=== PATIENT | male | born 1950 | race American Indian/Alaskan Native ===

== ENCOUNTER 2018-12-01 15:10 | Emergency (ER) | payer MEDICARE, OTHER ==
[2018-12-01 15:16] VITALS: BP 165/87; PULSE 81; RESP 18; TEMP 98.1; O2SAT 97; BMI 29.5
--- NOTE | 2018-12-01 16:28 | ED PDOC ---
Arrival/HPI - General Chief Complaint: ENT Problem Time Seen by Provider: 12/01/18 15:48 Historian: Patient - History of Present Illness Narrative History of Present Illness (Text): 12/01/18 15:48 Kahlil Valero is a 68 year old male, with a past medical history of CAD S/P CABG 36 years ago, multiple stents in the past several years, diabetes, hypertension, and nosebleeds who presents to the emergency department complaining of nosebleed since 1 hour. Patient appreciates majority of bleeding right in nostril. 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 Patient notes dry and warm air in the office. Patient states current nosebleed is worse than previous. Patient currently takes clopidogrel and aspirin 81mg. Patient denies chest pain, shortness of breath, abdominal pain, nausea, vomiting, diarrhea, or any other complaint. Time/Duration: 1 hour Symptom Course: Unchanged Activities at Onset: Light Context: Sitting, Other Past Medical History - Provider Review Nursing Documentation Reviewed: Yes - Infectious Disease Hx of Infectious Diseases: None - Cardiac Hx VT: Yes Hx Hypertension: Yes - Neurological Hx Seizures: No - Endocrine/Metabolic Hx Diabetes Mellitus Type 2: Yes - Musculoskeletal/Rheumatological Hx Falls: No - Psychiatric Hx Substance Use: No - Surgical History Hx Coronary Artery Bypass Graft: Yes Other/Comment: Knee Sx - Anesthesia Hx Anesthesia: Yes - Suicidal Assessment Feels Threatened In Home Enviroment: No Family/Social History - Physician Review Nursing Documentation Reviewed: Yes Family/Social History: No Known Family HX Smoking Status: Never Smoked Hx Alcohol Use: No Hx Substance Use: No Allergies/Home Meds Allergies/Adverse Reactions: Allergies No Known Allergies Allergy (Verified 12/01/18 15:23) Home Medications: Home Meds Medication Instructions Recorded Confirmed Aspirin [Ecotrin] 81 mg PO DAILY 09/22/16 12/01/18 Clopidogrel [Plavix] 75 mg PO DAILY 09/22/16 12/01/18 Diltiazem HCl [Cardizem LA] 180 mg PO QPM 09/22/16 12/01/18 Enalapril Maleate [Vasotec] 20 mg PO BID 09/22/16 12/01/18 Metoprolol Succinate XL [Toprol XL] 50 mg PO BID 09/22/16 12/01/18 Rosuvastatin Calcium [Crestor] 10 mg PO QPM 09/22/16 12/01/18 metFORMIN [glucOPHAGE] 500 mg PO BID 09/22/16 12/01/18 Review of Systems - Physician Review All systems were reviewed & negative as marked: Yes - Review of Systems ENT: Epistaxis Respiratory: absent: SOB Cardiovascular: absent: Chest Pain Physical Exam - Physical Exam Narrative Physical Exam (Text): 12/01/18 15:48 Constitutional: No acute distress. Head: Normocephalic. Atraumatic. Eyes: PERRL. ENT: active bleeding in right nostril Neck: Supple. Cardiovascular: Regular rate. Chest: No tenderness. Respiratory: Clear to auscultation bilaterally. GI: Soft. Nontender. Nondistended. Back: No CVA tenderness. Musculoskeletal: No tenderness or swelling of extremities. Skin: No rash. Neurologic: Alert, no focal deficit. Vital Signs Reviewed: Yes Vital Signs Temp Pulse Resp BP Pulse Ox 12/01/18 15:13 98.1 F 81 18 165/87 H 97 Temperature: Afebrile Blood Pressure: Hypertensive Pulse: Regular Respiratory Rate: Normal Appearance: Positive for: Well-Appearing, Non-Toxic, Comfortable Pain Distress: None Mental Status: Positive for: Alert and Oriented X 3 Medical Decision Making ED Course and Treatment: 12/01/18 15:48 Impression: Patient is a 68 year old male with a past medical history of CABG, multiple stents, diabetes, hypertension, and nosebleeds who presents to the emergency department for nosebleed since one hour ago. Pt Progress Notes: 12/01/18 16:10 Bleeding relieved w/ pressure. Observe patient to follow up for any other bleeding. Bleeding continued. Rhinorocket placed. 12/01/18 16:47 PROCEDURE: EPISTAXIS MANAGEMENT Performed by the Chano Kebede Consent: Informed consent was obtained after discussion of the risks, benefits, and alternatives to the procedure. Timeout: A timeout to verify the correct patient, procedure, and site was performed immediately prior to the procedure. Indication: Nasal bleeding control Location: right naris Bleeding Source: ANTERIOR Cautery: Packing: Rapid Rhino 4.5 cm, .75cc Post-procedure: Good hemostasis. The patient was observed following procedure and no repeat episode of bleeding was noted. Patient tolerated the procedure well with no immediate complications. - Scribe Statement The provider has reviewed the documentation as recorded by the Scribe Rodnye Barlow All medical record entries made by the Scribe were at my direction and p ersonally dictated by me. I have reviewed the chart and agree that the record accurately reflects my personal performance of the history, physical exam, medical decision making, and the department course for this patient. I have also personally directed, reviewed, and agree with the discharge instructions and disposition. Disposition/Present on Arrival - Present on Arrival Any Indicators Present on Arrival: No History of DVT/PE: No History of Uncontrolled Diabetes: No Urinary Catheter: No History of Decub. Ulcer: No History Surgical Site Infection Following: CABG - Mediastinitis, None - Disposition Have Diagnosis and Disposition been Completed?: Yes Diagnosis: Epistaxis Disposition: HOME/ ROUTINE Disposition Time: 16:44 Patient Plan: Discharge Condition: GOOD Discharge Instructions (ExitCare): Nosebleeds Prescriptions: Acetaminophen [Tylenol 325mg tab] 2 tab PO Q4H #30 tab Referrals: Misha Walker DO [Staff Provider] - Follow up with primary Forms: [employer] ([place])
== END 2018-12-01 16:47 | disposition home or self-care (01) ==
LOC: ED 15:10
DX: R04.0 Epistaxis (principal)

== ENCOUNTER 2018-12-16 20:48 | Emergency (ER) | payer MEDICARE, OTHER ==
[2018-12-16 20:48] VITALS: BMI 29.5
[2018-12-16 21:32] VITALS: BP 131/69; PULSE 72; RESP 18; O2SAT 97
[2018-12-16 21:33] VITALS: TEMP 97.7
--- NOTE | 2018-12-16 21:55 | ED PDOC ---
Arrival/HPI - General Chief Complaint: ENT Problem Historian: Patient - History of Present Illness Narrative History of Present Illness (Text): 12/16/18 21:51 68 y/o male, pmh including htn/hld/dm, nkda, c/o nose bleed about half hour ago and resolved. Pt. stated that he would like to be discharged home, scheduled to see the ENT, refused any nasal packing or cauterizing in the ER. Pt. has no fall or trauma, no other medical or psychological complaints. Past Medical History - Provider Review Nursing Documentation Reviewed: Yes - Infectious Disease Hx of Infectious Diseases: None - Cardiac Hx MO: Yes Hx Hypertension: Yes - Neurological Hx Seizures: No - Endocrine/Metabolic Hx Diabetes Mellitus Type 2: Yes - Musculoskeletal/Rheumatological Hx Falls: No - Psychiatric Hx Substance Use: No - Surgical History Hx Coronary Artery Bypass Graft: Yes Other/Comment: Knee Sx - Anesthesia Hx Anesthesia: Yes - Suicidal Assessment Feels Threatened In Home Enviroment: No Family/Social History - Physician Review Nursing Documentation Reviewed: Yes Family/Social History: Unknown Family HX Smoking Status: Never Smoked Hx Alcohol Use: Yes Frequency of alcohol use: Socially Hx Substance Use: No Allergies/Home Meds Allergies/Adverse Reactions: Allergies No Known Allergies Allergy (Verified 12/16/18 21:32) Home Medications: Home Meds Medication Instructions Recorded Confirmed Aspirin [Ecotrin] 81 mg PO DAILY 09/22/16 12/01/18 Clopidogrel [Plavix] 75 mg PO DAILY 09/22/16 12/01/18 Diltiazem HCl [Cardizem LA] 180 mg PO QPM 09/22/16 12/01/18 Enalapril Maleate [Vasotec] 20 mg PO BID 09/22/16 12/01/18 Metoprolol Succinate XL [Toprol XL] 50 mg PO BID 09/22/16 12/01/18 Rosuvastatin Calcium [Crestor] 10 mg PO QPM 09/22/16 12/01/18 metFORMIN [glucOPHAGE] 500 mg PO BID 09/22/16 12/01/18 Review of Systems - Review of Systems Constitutional: absent: Fatigue, Fevers Eyes: absent: Vision Changes ENT: absent: Hearing Changes Respiratory: absent: SOB, Cough Cardiovascular: absent: Chest Pain Gastrointestinal: absent: Abdominal Pain, Nausea, Vomiting Musculoskeletal: absent: Arthralgias, Back Pain Skin: absent: Rash, Pruritis Neurological: absent: Headache, Dizziness Psychiatric: absent: Anxiety, Depression, Suicidal Ideation Physical Exam Vital Signs Reviewed: Yes Vital Signs Temp Pulse Resp BP Pulse Ox 12/16/18 21:25 97.7 F 72 18 131/69 97 Temperature: Afebrile Blood Pressure: Normal Pulse: Regular Respiratory Rate: Normal Appearance: Positive for: Well-Appearing, Non-Toxic, Comfortable Pain Distress: None Mental Status: Positive for: Alert and Oriented X 3 - Systems Exam Head: Present: Atraumatic, Normocephalic Pupils: Present: PERRL Extroacular Muscles: Present: EOMI Conjunctiva: Present: Normal Mouth: Present: Moist Mucous Membranes Nose (External): Present: Atraumatic. No: Abrasion, Contusion, Laceration, Lesions Nose (Internal): Present: Normal Inspection, No Active Bleeding. No: Rhinorrhea, Septal Deviation, Septal Hematoma, Epistaxis Neck: Present: Normal Range of Motion Respiratory/Chest: Present: Clear to Auscultation, Good Air Exchange. No: Respiratory Distress, Accessory Muscle Use Cardiovascular: Present: Regular Rate and Rhythm, Normal S1, S2. No: Murmurs Abdomen: No: Tenderness, Distention, Peritoneal Signs Back: Present: Normal Inspection Upper Extremity: Present: Normal Inspection. No: Cyanosis, Edema Lower Extremity: Present: Normal Inspection. No: Edema Neurological: Present: GCS=15, CN II-XII Intact, Speech Normal Skin: Present: Warm, Dry, Normal Color. No: Rashes Psychiatric: Present: Alert, Oriented x 3, Normal Insight, Normal Concentration Medical Decision Making ED Course and Treatment: 12/16/18 21:56 -There is no active bleeding, pt. request to be discharged home, will discharge home. -Discharge home with education on follow up with your own pmd and ENT within 2 days, return to the ER for any new or worsening signs or symptoms. - PA / SKID STRAPPER / Resident Statement MD/DO has reviewed & agrees with the documentation as recorded. Disposition/Present on Arrival - Present on Arrival Any Indicators Present on Arrival: No History of DVT/PE: No History of Uncontrolled Diabetes: No Urinary Catheter: No History of Decub. Ulcer: No History Surgical Site Infection Following: None - Disposition Have Diagnosis and Disposition been Completed?: Yes Diagnosis: Epistaxis Disposition: HOME/ ROUTINE Disposition Time: 21:57 Patient Plan: Discharge Condition: IMPROVED Additional Instructions: Discharge home with education on follow up with your own pmd and ENT within 2 days, return to the ER for any new or worsening signs or symptoms. Referrals: Rocky Ortiz DO [Staff Provider] - Follow up with primary Forms: [employer] ([place])
== END 2018-12-16 22:10 | disposition home or self-care (01) ==
LOC: ED 20:48
DX: R04.0 Epistaxis (principal); E11.9 Type 2 diabetes mellitus without complications; I10 Essential (primary) hypertension; E78.5 Hyperlipidemia, unspecified; I25.2 Old myocardial infarction